=== PATIENT | female | born 1995 | race American Indian/Alaskan Native ===

== ENCOUNTER 2020-03-31 21:18 | Emergency (ER) | payer BC, MEDICAID ==
[2020-03-31 22:33] VITALS: BP 137/87
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
[2020-04-01] MEDS ORDERED: IBUPROFEN 800 MG TAB PO ONE (03:19)
== END 2020-04-01 03:47 | disposition home or self-care (01) ==
LOC: ED 21:18
DX: S16.1XXA Strain of muscle, fascia and tendon at neck level, initial encounter (principal); S39.012A Strain of muscle, fascia and tendon of lower back, initial encounter; J45.909 Unspecified asthma, uncomplicated; Z98.890 Other specified postprocedural states; Z79.1 Long term (current) use of non-steroidal anti-inflammatories (NSAID); Z79.899 Other long term (current) drug therapy; V49.49XA Driver injured in collision with other motor vehicles in traffic accident, initial encounter; Y93.89 Activity, other specified; Y92.410 Unspecified street and highway as the place of occurrence of the external cause; Y99.8 Other external cause status
CPT/HCPCS: 72040; 72100